=== PATIENT | female | born 1945 ===

== ENCOUNTER 2021-02-17 10:45 | Inpatient (IN) | payer OTHER ==
[2021-02-17] MEDS ORDERED: PLAQUENIL PO (12:13)
[2021-02-17] MEDS ORDERED: PENTOXIFYLLINE400 MG PO (12:13)
[2021-02-17] MEDS ORDERED: VITAMIN D3 PO (12:14)
[2021-02-25] MEDS ORDERED: HYDROXYCHLOROQ200 MG (10:12)
[2021-02-25] MEDS ORDERED: TERBINAFINE HC250 MG (10:13)
[2021-02-25] MEDS ORDERED: MELOXICAM15 MG (10:13)
[2021-02-25] MEDS ORDERED: ST. JOSEPH ASPI81 M2 (10:13)
[2021-02-25] MEDS ORDERED: ALENDRONATE SOD70 MG (10:13)
[2021-02-25] MEDS ORDERED: VITAMIN D3250 MC1 PO (10:14)
[2021-02-25] MEDS ORDERED: CODE1TAB37 PO (10:17)
[2021-02-25] MEDS ORDERED: INTESTINEX680 M1 PO (10:18)
[2021-02-25] MEDS ORDERED: NEURONTIN300 MG PO (10:18)
== END 2021-02-25 13:18 | disposition home or self-care (01) | DRG 748 ==
LOC: ADM 10:45 → O/R 02-24 06:34 → SURH 02-24 06:34 → EDSTATUS 02-24 10:45 → CIR.AMB 02-24 10:45 → SURH 02-24 12:28
PROVIDERS: ADMIT Surgery; ATTEND Surgery
PROC: 0USG7ZZ Reposition Vagina, Via Natural or Artificial Opening (ICD-10-PCS; 2021-02-24)
PROC: 3E0T33Z Introduction of Anti-inflammatory into Peripheral Nerves and Plexi, Percutaneous Approach (ICD-10-PCS; 2021-02-24)
PROC: 0JQC3ZZ Repair Pelvic Region Subcutaneous Tissue and Fascia, Percutaneous Approach (ICD-10-PCS; principal; 2021-02-24 07:00)
DX: N81.6 Rectocele (principal); K57.30 Diverticulosis of large intestine without perforation or abscess without bleeding; K59.02 Outlet dysfunction constipation; N81.10 Cystocele, unspecified; Z20.822 Contact with and (suspected) exposure to COVID-19

== ENCOUNTER 2022-12-20 05:32 | Day surgery (SDC) | payer OTHER ==
[~2022-12-20 05:32] MED LIST: ALENDRONATE SOD70 MG; CODE1TAB37 PO; HYDROXYCHLOROQ200 MG; INTESTINEX680 M1 PO; MELOXICAM15 MG; NEURONTIN300 MG PO; PENTOXIFYLLINE400 MG PO; PLANQUENIL; PLAQUENIL PO; ST. JOSEPH ASPI81 M2; TERBINAFINE HC250 MG; VITAMIN D3 PO; VITAMIN D3250 MC1 PO
== END 2022-12-20 13:25 | disposition home or self-care (01) ==
LOC: CIR.AMB 05:32
PROVIDERS: ATTEND Obstetrics & Gynecology Gynecology
DX: N81.6 Rectocele (principal); N81.5 Vaginal enterocele; Z20.822 Contact with and (suspected) exposure to COVID-19; N39.498 Other specified urinary incontinence